=== PATIENT | male | born 1960 | race Caucasian/White ===

== ENCOUNTER 2017-05-05 12:09 | Emergency (ER) | payer SELFPAY ==
--- NOTE | ~2017-05-05 | CN ---
PATIENT NAME:JAMAR MAHARAJ MEDICAL RECORD: [id number] : 64 LOCATION:.ER ADMIT DATE: ACCOUNT: [id number] CONSULTING PHYSICIAN: NILE DAVIS MD REFERRING PHYSICIAN: EDWIN COLVIN MD CARDIOLOGY CONSULT PROBLEM LIST: 1. Chest pain. 2. Family history of coronary artery disease. HISTORY OF PRESENT ILLNESS: Mr. Maharaj began having chest pain after carrying 55 gallons of paint from [place]. The chest pain is centered around the left shoulder. This was two weeks ago. It has worsened over the last two weeks. It is associated with nausea and some episodes of diaphoresis. He has a very strong family history of coronary artery disease. Electrocardiogram is with no changes. Troponin is normal. PHYSICAL EXAMINATION: HEAD, EYES, EARS, NOSE, AND THROAT: Benign. NECK: Supple. No jugular venous distention. Carotid upstroke plus two bilaterally without bruits. LUNGS: Overall clear to auscultation and percussion. HEART: Regular. Normal S1, normal S2. No S3, no S4. No murmurs. BONES, JOINTS, EXTREMITIES: No clubbing, cyanosis, or edema. OVERALL IMPRESSION: Chest pain, most likely musculoskeletal. We will set him up for an outpatient stress test. NILE DAVIS MD CC: [id number] DICTATION DATE: 05/05/17 1500 [employer] ENGINEER: DM 05/06/17 0925 [facility] ER 05/05/17 [facility] [address] [place] [address]
[2017-05-05 12:56] LABS: BASOPHILS 0.4 % (0-2); HEMATOCRIT 46.9 % (42.0-54.0); HEMOGLOBIN 15.6 g/dL (13.5-17.5); IMMATURE GRANULOCYTES 0.1 % (0-5); MCH 30.1 pg (26.0-34.0); MCHC 33.3 g/dL (31.0-37.0); MCV 90.5 fL (80.0-100.0); MEAN PLATELET VOLUME 12.7 fL (7.4-10.4); MONOCYTES 8.8 % (2-11); NEUTROPHILS 61.7 % (40-80); PLATELET COUNT 196 10x3/uL (130-400); RBC 5.18 10x6/uL (4.20-6.10); RDW 13.1 % (11.5-14.5); WBC 7.1 10x3/uL (4.8-10.8)
[2017-05-05 13:15] LABS: ALKALINE PHOSPHATASE 85 U/L (46-116); ALT (SGPT) 22 U/L (10-68); BILIRUBIN - TOTAL 1.06 mg/dL (0.2-1.3); CALC OSMOLALITY 278 mosm/kg (275-300); CALCIUM 9.8 mg/dL (8.5-10.1); CARBON DIOXIDE 25.7 mmol/L (21.0-32.0); CHLORIDE - SERUM 104 mmol/L (98-107); CREATININE - SERUM 1.1 mg/dL (0.6-1.3); GLUCOSE 102 mg/dL (74-106); POTASSIUM - SERUM 5.3 mmol/L (3.5-5.1); PROTEIN - SERUM 7.8 g/dL (6.4-8.2); SODIUM 139 mmol/L (136-145); UREA NITROGEN 15 mg/dL (7-18); eGFR NON AFRICAN AMERICAN 74 mL/min (90-120)
[2017-05-05 13:34] LABS: CHOL - HDL RATIO 3.2 ratio (2.3-4.9); CHOLESTEROL, TOTAL 183 mg/dL (0-200); CKMB 0.6 U/L (0.0-3.6); CREATINE KINASE 152 UL (21-232); HDL CHOLESTEROL 57 mg/dL (32-96); LDL CHOLESTEROL 106 mg/dL (0-100); LDL-HDL RATIO 1.9 ratio (1.5-3.5); TRIGLYCERIDE 100 mg/dL (30-200)
[2017-05-05 13:35] LABS: TROPONIN-I < 0.017 ng/mL (0.000-0.060)
== END 2017-05-05 13:50 | disposition home or self-care (01) ==
LOC: D.ER 12:09
PROVIDERS: Emergency Medicine
DX: R07.9 Chest pain, unspecified (principal); Z82.49 Family history of ischemic heart disease and other diseases of the circulatory system